=== PATIENT | male | born 1990 | race Caucasian/White ===

== ENCOUNTER 2016-11-16 07:02 | Emergency (ER) | payer OTHER ==
[~2016-11-16] VITALS: Ht 162.6 cm; Wt 68.9 kg
[2016-11-16] MEDS ORDERED: TETANUS,DIPTH,PERTUSS P/F (BOOSTRIX) 0.5 ML VIAL IM STA (07:30)
[2016-11-16] MEDS ORDERED: LIDOCAINE/EPI 1%-1:100,000 (XYLOCAINE) 20ML INJ STA (07:30)
--- NOTE | 2016-11-16 08:11 | ED Upper Extremity ---
General Chief Complaint: Laceration Stated Complaint: LAC LEFT ARM Nursing Triage Note: AMBULATED TO ROOM 07 WITHOUT DIFFICULTY. LACERATION TO LEFT WRIST FROM WORK RELTED ACCIDENT WITH A SAW. PT WORKS AT [employer]. CMS CHECK TO LEFT HAND WNL. Nursing Sepsis Screen: No Definite Risk Source: patient Exam Limitations: no limitations History of Present Illness Time seen by provider: 07:25 Initial Comments Here with report of laceration to the left wrist volar aspect on the ulnar side that is 5 cm long. This occurred at work while he was grinding. 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 Bleeding is controlled. Tetanus is not up-to-date. Denies disturbances of movement or sensation to the left hand. Onset: just prior to arrival Severity: moderate Pain/Injury Location: left wrist Method of Injury: incised Modifying Factors: Improves With Immobilization, Worse With Movement Allergies and Home Medications Allergies Coded Allergies: No Known Drug Allergies (Unverified , 11/16/16) Home Medications No Active Prescriptions or Reported Meds Constitutional: see HPI, No chills, No fever Respiratory: no symptoms reported Cardiovascular: no symptoms reported Musculoskeletal: see HPI, muscle pain, No muscle weakness Skin: see HPI, lesions Psychiatric/Neurological: Denies Numbness, Denies Tingling, Denies Weakness Past Zmelrfj-Hgogxc-Lnbcyw Hx Patient Social History Alcohol Use: Denies Use Recreational Drug Use: No Smoking Status: Current Everyday Smoker Recent Foreign Travel: No Contact w/Someone Who Travel: No Recent Infectious Disease Expo: No Recent Hopitalizations: No Seasonal Allergies Seasonal Allergies: No Surgeries HX Surgeries: No Respiratory Hx Respiratory Disorders: No Cardiovascular Hx Cardiac Disorders: No Neurological Hx Neurological Disorders: No Reproductive System Hx Reproductive Disorders: No Genitourinary Hx Genitourinary Disorders: No Gastrointestinal Hx Gastrointestinal Disorders: No Musculoskeletal Hx Musculoskeletal Disorders: No Endocrine Hx Endocrine Disorders: No HEENT HX ENT Disorders: No Cancer Hx Cancer: No Psychosocial Hx Psychiatric Problems: No Reviewed Nursing Assessment Reviewed/Agree w Nursing PMH: Yes Family Medical History Significant Family History: No Pertinent Family Hx Physical Exam Vital Signs Vital Sign - Last 12Hours 11/16/16 07:05 Temp 98.0 Pulse 92 Resp 16 B/P (MAP) 141/90 Pulse Ox 98 Capillary Refill : Less Than 3 Seconds General Appearance: WD/WN, no apparent distress Cardiovascular: regular rate, rhythm, no murmur Respiratory: lungs clear, normal breath sounds Wrist: Yes normal ROM, Yes pain, Yes soft tissue tenderness (5 centimeter laceration to the inner aspect of the left wrist on the ulnar side that is horizontally oriented with respect to the arm.) Hand: normal ROM, Left 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 Wound evaluated. Tendon sheath noted but intact without laceration. Patient has venous bleeding from distal edge. Vessel oversewn with 2 Vicryl sutures. Closed with 7 simple interrupted 4-0 Prolene lines. Covered with antibiotic ointment and dressing. Tolerated procedure well. No complications. Progress/Results/Core Measures Results/Orders My Orders Orders - SHERWIN DAY MD Dipht,Pertwolfgang(Acell),Tet Adult (Boostrix (11/16/16 07:30) Lidocaine/Epi 1% 1:100,000 (Xylocaine /E (11/16/16 07:30) Ibuprofen Tablet (Motrin Tablet) (11/16/16 08:14) Vital Signs/I&O Vital Sign - Last 12Hours 11/16/16 07:05 Temp 98.0 Pulse 92 Resp 16 B/P (MAP) 141/90 Pulse Ox 98 Blood Pressure Mean: 107 Progress Note : Progress Note Seen and evaluated. Tetanus updated. Wound anesthetized and had resolution of pain. Wound cleaned and closure by me. Antibiotic ointment, Telfa and dressing placed afterwards. Placed in simple Velcro splint. Discharged home with return precautions. Patient verbalize understanding of instructions and agreement with plan. Ibuprofen 800 mg by mouth given prior to discharge. Departure Impression Impression: Primary Impression: Laceration of left wrist Qualified Codes: S61.512A - Laceration without foreign body of left wrist, initial encounter Disposition: 01 HOME, SELF-CARE Condition: Improved Departure-Patient Inst. Decision time for Depature: 08:15 Referrals: NO,LOCAL PHYSICIAN (PCP/Family) Primary Care Physician Patient Instructions: Laceration Repair With Stitches (DC) Add. Discharge Instructions: All discharge instructions reviewed with patient and/or family. Voiced understanding. Stitches out in 10 days. You may use antibiotic ointment and dressing over wound changing it twice daily for the next his or so and then just use dry dressing over wound after that. Clean wounds daily. You may shower but do not soak wound in bathtub, poor for any other body of water. Pat wound dry after cleaning. Use splint that was given for the next several days to prevent sutures from pulling out. Return for worse pain, fever, red streaks up the arm , foul-smelling drainage or other concerns as needed. You may take ibuprofen 800 mg every 8 hours as needed for pain. You may take Tylenol 1000 mg every 8 hours as needed for pain. Scripts No Active Prescriptions or Reported Meds SHERWIN DAY MD Nov 16, 2016 08:11
[2016-11-16] MEDS ORDERED: IBUPROFEN 800 MG (MOTRIN) TAB PO STA (08:14)
[2016-11-16 08:25] VITALS: BP 141/90
== END 2016-11-16 08:25 | disposition home or self-care (01) ==
LOC: EDUNIT# 07:02 → ER 07:05
DX: S61.512A Laceration without foreign body of left wrist, initial encounter (principal); Z23 Encounter for immunization; F17.210 Nicotine dependence, cigarettes, uncomplicated; W31.89XA Contact with other specified machinery, initial encounter; Y92.59 Other trade areas as the place of occurrence of the external cause; Y99.0 Civilian activity done for income or pay
CPT/HCPCS: 12032; 90471; 90715

== ENCOUNTER 2017-03-25 22:33 | Inpatient (IN) | payer OTHER ==
[~2017-03-25] VITALS: Ht 162.6 cm; Wt 76.3 kg
[2017-03-25] MEDS ORDERED: NS IV 1000 ML 1,000 ML IV ONE ×2 (23:05→23:30)
[2017-03-25] MEDS ORDERED: ACETAMINOPHEN 500 MG TAB (TYLENOL) PO STA (23:05)
[2017-03-25 23:10] LABS: BASOPHILS % (AUTO) 0 % (0-10); EOSINOPHILS % (AUTO) 0 % (0-10); LYMPHOCYTES # (AUTO) 0.3 X 10^3 (1.0-4.0); LYMPHOCYTES % (AUTO) 10 % (12-44); MEAN CORPUSCULAR HEMOGLOBIN 30 PG (25-34); MEAN CORPUSCULAR HGB CONC 34 G/DL (32-36); MEAN CORPUSCULAR VOLUME 89 FL (80-99); MEAN PLATELET VOLUME 9.1 FL (7.4-10.4); MONOCYTES % (AUTO) 0 % (0-12); NEUTROPHILS # (AUTO) 2.6 X 10^3 (1.8-7.8); NEUTROPHILS % (AUTO) 89 % (42-75); PLATELET COUNT 166 10^3/uL (130-400); RED BLOOD COUNT 4.49 10^6/uL (4.35-5.85)
[2017-03-25 23:19] LABS: KETONES,URINE 1+ (NEGATIVE); LEUKOCYTE ESTERASE ,URINE 1+ (NEGATIVE); NITRITE,URINE NEGATIVE (NEGATIVE); PH,URINE 6 (5-9); PROTEIN,URINE 3+ (NEGATIVE); UROBILINOGEN,URINE 8 MG/DL (NORMAL)
[2017-03-25 23:23] LABS: ALANINE AMINOTRANSFERASE 63 U/L (0-55); ALBUMIN 3.5 GM/DL (3.2-4.5); ANION GAP 13 MMOL/L (5-14); ASPARTATE AMINO TRANSFERASE 60 U/L (5-34); BILIRUBIN,TOTAL 1.4 MG/DL (0.1-1.0); BLOOD UREA NITROGEN 13 MG/DL (7-18); BUN/CREATININE RATIO 11; CALCIUM 9.3 MG/DL (8.5-10.1); CARBON DIOXIDE 19 MMOL/L (21-32); CHLORIDE 103 MMOL/L (98-107); CREATININE SERUM 1.14 MG/DL (0.60-1.30); GFR ESTIMATED > 60; GLUCOSE 104 MG/DL (70-105); POTASSIUM 3.7 MMOL/L (3.6-5.0); SODIUM 135 MMOL/L (135-145); TOTAL PROTEIN 6.7 GM/DL (6.4-8.2)
[2017-03-25 23:24] LABS: BILIRUBIN,URINE 1+ (NEGATIVE)
[2017-03-25] MEDS ORDERED: ONDANSETRON 4 MG/2 ML (SDV) Z0FRAN IVP ONE (23:45)
[2017-03-25 23:56] LABS: hs C REACTIVE PROTEIN 17.91 MG/DL (0.00-0.50)
[2017-03-26] MEDS ORDERED: DOXYCYCLINE INJECTION 100 MG in NS (IVPB) 100 ML IV ONE (00:15)
[2017-03-26] MEDS ORDERED: cefTRIAXone INJECTION 1,000 MG in NS (IVPB) 50 ML IV ONE (00:15)
[2017-03-26] MEDS ORDERED: KETOROLAC 30 MG/ML VIAL IVP ONE (00:30)
--- NOTE | 2017-03-26 01:20 | ED General ---
General Chief Complaint: Fever-Adult/Adol Stated Complaint: COUGH N/V/D Nursing Triage Note: to ER with complaints of fever and chills x 5 days. Patient reports intermittent use of ibuprofen, with some relief. Patient's mother reports "well, he was working and you know, running through a field and got some cuts on his ball sack and arms, and i think they was infected, but they better now, but maybe it got to his bloodstream." Nursing Sepsis Screen: Possible Sepsis Risk Source of Information: Patient, Family Exam Limitations: No Limitations History of Present Illness Time Seen by Provider: 23:05 Initial Comments This 26-year-old young man presents to the emergency room with numerous symptoms of acute illness. Symptoms started about 5 days ago and include fever , chills, vomiting, headache with light sensitivity, dry cough, neck stiffness that is now resolved, diarrhea, chest discomfort, and myalgias/arthralgias. He was injured while running through a field about 2 weeks ago. He stepped on raad wire and ran through brush resulting in numerous minor abrasions and lacerations on his extremities and the scrotum. He reports to skin infections/ abscess is occurred, one on the left elbow and one on the scrotum. The one on the left elbow drained pus which he expressed manually. These wounds now appear to have healed. He is up-to-date on his tetanus immunization. His family is concerned he may have developed sepsis from the skin infections. Patient reports diffuse myalgias and arthralgias, especially of the left knee and right thumb. He is uncertain if he had any tick bites recently but would not doubt it based on the location of the incident described above. He is notably febrile and tachycardic on assessment. Allergies and Home Medications Allergies Coded Allergies: No Known Drug Allergies (Unverified , 11/16/16) Home Medications No Active Prescriptions or Reported Meds Constitutional: see HPI EENTM: see HPI Respiratory: see HPI Cardiovascular: see HPI Gastrointestinal: see HPI Genitourinary: no symptoms reported Musculoskeletal: see HPI Skin: see HPI Psychiatric/Neurological: See HPI Hematologic/Lymphatic: No Symptoms Reported Immunological/Allergic: no symptoms reported Past Pvhpiyy-Vlsmwz-Eubzzh Hx Patient Social History Alcohol Use: Occasionally Uses Recreational Drug Use: Yes Drug of Choice: Marijuana Smoking Status: Never a Smoker 2nd Hand Smoke Exposure: Yes Recent Foreign Travel: No Contact w/Someone Who Travel: No Recent Infectious Disease Expo: No Recent Hopitalizations: No Immunizations Up To Date Tetanus Booster (TDap): Less than 5yrs Seasonal Allergies Seasonal Allergies: No Surgeries HX Surgeries: No Respiratory Hx Respiratory Disorders: No Cardiovascular Hx Cardiac Disorders: Yes (history of pre-atrial contractions) Neurological Hx Neurological Disorders: No Reproductive System Hx Reproductive Disorders: No Genitourinary Hx Genitourinary Disorders: No Gastrointestinal Hx Gastrointestinal Disorders: No Musculoskeletal Hx Musculoskeletal Disorders: No Endocrine Hx Endocrine Disorders: No HEENT HX ENT Disorders: No Cancer Hx Cancer: No Psychosocial Hx Psychiatric Problems: No Integumentary HX Skin/Integumentary Disorder: Yes Skin/Integumentary Disorders: Recent Skin Changes (recent skin infections) Family Medical History Significant Family History: No Pertinent Family Hx, Diabetes, Other Conditions/ Hx (factor V Leiden) Physical Exam-Suspected Sepsis Physical Exam Vital Signs Vital Sign - Last 12Hours 03/25/17 22:44 Temp 101.3 Pulse 116 Resp 20 B/P (MAP) 139/105 Pulse Ox 95 O2 Delivery Room Air Capillary Refill : Less Than 3 Seconds Blood Pressure Mean: 116 General Appearance: WD/WN, Mild Distress HEENT: PERRL/EOMI, TMs Normal, Normal ENT Inspection, Pharynx Normal Neck: Full Range of Motion, Normal Inspection, Non Tender, Supple, Other (no nuchal rigidity) Respiratory: Lungs Clear, Normal Breath Sounds, No Accessory Muscle Use, No Respiratory Distress, Other (mild dry cough noted) Cardiovascular: No Edema, No Murmur, Tachycardia Gastrointestinal: Normal Bowel Sounds, Soft, Tenderness (epigastric tenderness) Back: Normal Inspection Extremity: Non Tender, No Pedal Edema, Other (healing wounds on the extremities with no evidence of active infection) Neurologic/Psychiatric: Alert, Oriented x3, No Motor/Sensory Deficits, Normal Mood/Affect, database analyst II-XII Norm as Tested Skin: normal color, warm/dry, No rash Focused Exam Evaluation Sepsis Stage: Sepsis Possible Source: Unknown Time of Focused Exam: 02:05 Respiratory: Lungs Clear, Normal Breath Sounds, No Accessory Muscle Use, No Respiratory Distress Cardiovascular: Regular Rate, Rhythm, No Edema, No Murmur Capillary Refill: Less Than 3 Seconds Skin: normal color, warm/dry Lactic Acid Level Laceration Repair : Suture Size: 4-0 Progress/Results/Core Measures Suspected Sepsis Recent Fever Within 48 Hours: Yes Infection Criteria Present: Suspected New Infection New/Unexplained Altered Menta: No Sepsis Screen: Possible Sepsis Risk Sepsis Diagnosis: SIRS Temperature:101.3 Pulse: 116 Respiratory Rate: 20 Laboratory Tests 03/25/17 22:55: White Blood Count 3.0L 03/26/17 04:10: White Blood Count 13.8H Blood Pressure 139 /105 Mean: 116 Laboratory Tests 03/25/17 22:55: Creatinine 1.14, Platelet Count 166, Total Bilirubin 1.4H 03/26/17 04:10: Platelet Count 182 Results/Orders Lab Results Laboratory Tests Test 03/25/17 22:45 03/25/17 22:55 03/25/17 23:35 03/26/17 04:10 Range/Units Urine Color WILNER H Urine Clarity CLEAR Urine pH 6 5-9 Urine Specific [place] 1.020 1.016-1.022 Urine Protein 3+ H NEGATIVE Urine Glucose (UA) NEGATIVE NEGATIVE Urine Ketones 1+ H NEGATIVE Urine Nitrite NEGATIVE NEGATIVE Urine Bilirubin 1+ H NEGATIVE Urine Urobilinogen 8 H NORMAL MG/DL Urine Leukocyte Esterase 1+ H NEGATIVE Urine RBC (Auto) 3+ H NEGATIVE Urine RBC 0-2 /HPF Urine WBC 2-5 /HPF Urine Crystals NONE /LPF Urine Bacteria NEGATIVE /HPF Urine Casts NONE /LPF Urine Mucus LARGE H /LPF Urine Culture Indicated NO White Blood Count 3.0 L 13.8 H 4.3-11.0 10^3/uL Red Blood Count 4.49 4.15 L 4.35-5.85 10^6/uL Hemoglobin 13.5 12.4 L 13.3-17.7 G/DL Hematocrit 40 37 L 40-54 % Mean Corpuscular Volume 89 90 80-99 FL Mean Corpuscular Hemoglobin 30 30 25-34 PG Mean Corpuscular Hemoglobin Concent 34 33 32-36 G/DL Red Cell Distribution Width 13.0 13.3 10.0-14.5 % Platelet Count 166 182 130-400 10^3/uL Mean Platelet Volume 9.1 9.5 7.4-10.4 FL Neutrophils (%) (Auto) 89 H 91 H 42-75 % Lymphocytes (%) (Auto) 10 L 3 L 12-44 % Monocytes (%) (Auto) 0 6 0-12 % Eosinophils (%) (Auto) 0 0 0-10 % Basophils (%) (Auto) 0 0 0-10 % Neutrophils # (Auto) 2.6 12.5 H 1.8-7.8 X 10^3 Lymphocytes # (Auto) 0.3 L 0.5 L 1.0-4.0 X 10^3 Monocytes # (Auto) 0.0 0.8 0.0-1.0 X 10^3 Eosinophils # (Auto) 0.0 0.0 0.0-0.3 10^3/uL Basophils # (Auto) 0.0 0.0 0.0-0.1 10^3/uL Sodium Level 135 135-145 MMOL/L Potassium Level 3.7 3.6-5.0 MMOL/L Chloride Level 103 98-107 MMOL/L Carbon Dioxide Level 19 L 21-32 MMOL/L Anion Gap 13 5-14 MMOL/L Blood Urea Nitrogen 13 7-18 MG/DL Creatinine 1.14 0.60-1.30 MG/DL Estimat Glomerular Filtration Rate > 60 BUN/Creatinine Ratio 11 Glucose Level 104 70-105 MG/DL Lactic Acid Level 1.38 0.50-2.00 MMOL/L Calcium Level 9.3 8.5-10.1 MG/DL Total Bilirubin 1.4 H 0.1-1.0 MG/DL Aspartate Amino Transf (AST/SGOT) 60 H 5-34 U/L Alanine Aminotransferase (ALT/SGPT) 63 H 0-55 U/L Alkaline Phosphatase 47 40-136 U/L Total Creatine Kinase 71 30-200 U/L C-Reactive Protein High Sensitivity 17.91 H 0.00-0.50 MG/DL Total Protein 6.7 6.4-8.2 GM/DL Albumin 3.5 3.2-4.5 GM/DL Micro Results Microbiology 03/26/17 Influenza Types A,B Antigen ([facility]I) - Final, Complete My Orders Orders - JERI GUIDRY MD Cbc With Automated Diff (03/25/17 23:03) Comprehensive Metabolic Panel (03/25/17 23:03) Lactic Acid Analyzer (03/25/17 23:03) Blood Culture (03/25/17 23:03) Saline Lock/Iv-Start (03/25/17 23:03) Ua Culture If Indicated (03/25/17 23:15) Tick Panel Without Lyme (03/25/17 23:30) Ns Iv 1000 Ml (Sodium Chloride 0.9%) (03/25/17 23:30) Hs C Reactive Protein (03/25/17 23:30) Chest Pa/Lat (2 View) (03/25/17 23:32) Ondansetron Injection (Zofran Injectio (03/25/17 23:45) Creatine Kinase (03/25/17 23:32) Ceftriaxone Injection (Rocephin Injectio (03/26/17 00:15) Doxycycline Injection (Vibramycin Inject (03/26/17 00:15) Influenza A And B Antigens (03/26/17 00:14) Ct Abdomen/Pelvis W (03/26/17 00:21) Ketorolac Injection (Toradol Injection) (03/26/17 00:30) West Nile Virus Igg & M (03/26/17 00:24) Iohexol Injection (Omnipaque 350 Mg/Ml 1 (03/26/17 01:45) Medications Given in ED Current Medications Medications Dose Ordered Sig/Chava Route Start Time Stop Time Status Last Admin Dose Admin Ceftriaxone Sodium 1000 mg/ Sodium Chloride 50 ml @ 100 mls/hr ONCE ONCE IV 03/26/17 00:15 03/26/17 00:44 DC 03/26/17 01:08 100 MLS/HR Doxycycline Hyclate 100 mg/ Sodium Chloride 100 ml @ 100 mls/hr ONCE ONCE IV 03/26/17 00:15 03/26/17 01:14 DC 03/26/17 01:04 100 MLS/HR Ketorolac Tromethamine 30 mg ONCE ONCE IVP 03/26/17 00:30 03/26/17 00:31 DC 03/26/17 01:04 30 MG Ondansetron HCl 8 mg ONCE ONCE IVP 03/25/17 23:45 03/25/17 23:46 DC 03/25/17 23:39 8 MG Sodium Chloride 1,000 ml @ 0 mls/hr Q0M ONCE IV 03/25/17 23:05 03/25/17 23:06 DC 03/25/17 23:10 0 MLS/HR Sodium Chloride 1,000 ml @ 0 mls/hr Q0M ONCE IV 03/25/17 23:30 03/25/17 23:32 DC 03/25/17 23:38 0 MLS/HR Vital Signs/I&O Vital Sign - Last 12Hours 03/25/17 03/25/17 03/26/17 03/26/17 22:44 23:10 02:24 02:30 Temp 101.3 101.3 99.5 Pulse 116 101 Resp 20 18 B/P (MAP) 139/105 Pulse Ox 95 96 97 O2 Delivery Room Air Room Air Intake and Output 03/26/17 00:00 Intake Total 1000 ml Balance 1000 ml Capillary Refill : Less Than 3 Seconds Blood Pressure Mean: 116 Progress Note #1: Time: 00:21 Progress Note Septic workup was pursued after initial assessment as patient met SIRS criteria. No definite source of sepsis has been identified. However, there are potential sources including recent skin wounds. Patient also was in a field at the same time he received the skin wounds and tickborne illness is within consideration. Patient does have some symptoms of ehrlichiosis including the diarrhea, headache, and blood count dyscrasias. Progress Note #2: Time: 00:22 Progress Note Source of infection has not yet been identified. Tickborne disease is a consideration and doxycycline was ordered. Rocephin has also been ordered empirically. Patient does have epigastric tenderness on exam which is presumed to be related to vomiting. CT of the abdomen and pelvis has been ordered to further evaluate for source of infection. Progress Note #3: Time: 02:[address] demonstrated no acute findings requiring immediate intervention. There is suggestion of gastroenteritis, enterocolitis. Patient feels much better after hydration and treatment with medications including Toradol. Doxycycline and Rocephin were administered in the ER. Diagnostic Imaging Diagonstic Imaging: Xray Plain Films/CT/US/NM/MRI: chest Comments Chest x-ray viewed by me. Report not yet available. No acute abnormalities appreciated. Diagonstic Imaging: CT Plain Films/CT/US/NM/MRI: abdomen, pelvis Comments CT abdomen and pelvis viewed by me. [facility] report reviewed. "There is segmental wall thickening of the colon with air-fluid levels. Also, intermittent air-fluid levels in the nondilated small bowel loops. Findings may represent sequela of enterocolitis/gastroenteritis. Correlate with findings and history. There is trace amount of free fluid. No free air or fluid collections. The appendix is normal in caliber but fluid-filled, coronary secondary to fluid in:. No appendicolith or adjacent inflammatory type changes. Correlate with clinical findings. Consider short-term imaging and clinical follow-up. The liver, spleen, pancreas, gallbladder, adrenal glands, and kidneys are unremarkable. Urinary bladder, prostate and seminal vesicles are unremarkable." Departure Communication Time/Spoke to Admitting Phy: 00:[address] Dhillon Impression Impression: Primary Impression: Sepsis Qualified Codes: A41.9 - Sepsis, unspecified organism Additional Impressions: Nausea vomiting and diarrhea Headache Qualified Codes: R51 - Headache Myalgia Leukopenia Qualified Codes: D72.819 - Decreased white blood cell count, unspecified Epigastric pain Disposition: ADMITTED INPATIENT Condition: Improved Decision to Admit Reason: Admit from ER (General) Decision to Admit/Date: Mar 26, 2017 Time/Decision to Admit Time: 00:21 Departure-Patient Inst. Referrals: NO,LOCAL PHYSICIAN (PCP/Family) Primary Care Physician Scripts No Active Prescriptions or Reported Meds JERI GUIDRY MD Mar 26, 2017 01:20
[2017-03-26] MEDS ORDERED: IOHEXOL 350 MG/ML 100 ML (OMNIPAQUE 350) VIAL IV ONE (01:45)
[2017-03-26] MEDS ORDERED: NS IV 1000 ML 1,000 ML ONE (02:54)
[2017-03-26] MEDS: NS IV 1000 ML 1,000 ML IV SCH ×4 (03:12→23:02)
[2017-03-26] MEDS ORDERED: VANCOMYCIN 1 GM/NS 250 ML IVPB IV ONE ×2 (03:15)
[2017-03-26] MEDS ORDERED: CATHETER FLUSH 10 ML SYR IV PRN (03:15)
[2017-03-26 04:00] VITALS: BP 110/57
[2017-03-26] MEDS: ONDANSETRON 4 MG/2 ML (SDV) Z0FRAN IV PRN ×3 (04:23→22:20)
[2017-03-26 04:52] LABS: BASOPHILS % (AUTO) 0 % (0-10); EOSINOPHILS % (AUTO) 0 % (0-10); LYMPHOCYTES # (AUTO) 0.5 X 10^3 (1.0-4.0); LYMPHOCYTES % (AUTO) 3 % (12-44); MEAN CORPUSCULAR HEMOGLOBIN 30 PG (25-34); MEAN CORPUSCULAR HGB CONC 33 G/DL (32-36); MEAN CORPUSCULAR VOLUME 90 FL (80-99); MEAN PLATELET VOLUME 9.5 FL (7.4-10.4); MONOCYTES # (AUTO) 0.8 X 10^3 (0.0-1.0); MONOCYTES % (AUTO) 6 % (0-12); NEUTROPHILS # (AUTO) 12.5 X 10^3 (1.8-7.8); NEUTROPHILS % (AUTO) 91 % (42-75); PLATELET COUNT 182 10^3/uL (130-400); RED BLOOD COUNT 4.15 10^6/uL (4.35-5.85); RED CELL DISTRIBUTION WIDTH 13.3 % (10.0-14.5); WHITE BLOOD COUNT 13.8 10^3/uL (4.3-11.0)
[2017-03-26 05:14] LABS: BAND NEUTROPHILS 13 %; BASOPHILS % (MANUAL) 0 %; EOSINOPHILS % (MANUAL) 0 %; LYMPHOCYTES % (MANUAL) 2 %; NEUTROPHILS % (MANUAL) 80 %
[2017-03-26] MEDS: DOXYCYCLINE 100 MG/NS 100 ML IVPB IV SCH ×4 (05:14→17:13)
[2017-03-26] MEDS: CATHETER FLUSH 10 ML SYR IV SCH ×3 (05:16→20:49)
[2017-03-26] MEDS: ACETAMINOPHEN 325 MG TABLET/CAPLET (TYLENOL) PO PRN ×3 (05:19→20:47)
[2017-03-26 05:27] LABS: ALANINE AMINOTRANSFERASE 65 U/L (0-55); ALBUMIN 3.1 GM/DL (3.2-4.5); ANION GAP 10 MMOL/L (5-14); ASPARTATE AMINO TRANSFERASE 59 U/L (5-34); BILIRUBIN,TOTAL 1.4 MG/DL (0.1-1.0); BLOOD UREA NITROGEN 12 MG/DL (7-18); BUN/CREATININE RATIO 11; CALCIUM 8.3 MG/DL (8.5-10.1); CARBON DIOXIDE 22 MMOL/L (21-32); CHLORIDE 107 MMOL/L (98-107); CREATININE SERUM 1.12 MG/DL (0.60-1.30); GFR ESTIMATED > 60; GLUCOSE 118 MG/DL (70-105); POTASSIUM 4.2 MMOL/L (3.6-5.0); SODIUM 139 MMOL/L (135-145); TOTAL PROTEIN 5.7 GM/DL (6.4-8.2); hs C REACTIVE PROTEIN 14.94 MG/DL (0.00-0.50)
--- NOTE | 2017-03-26 07:54 | Diagnostic Imaging Report ---
PROCEDURE: CT abdomen and pelvis with contrast. TECHNIQUE: Multiple contiguous axial images were obtained through the abdomen and pelvis after administration of intravenous contrast. INDICATION: Fever, cough, congestion. FINDINGS: There is a trace amount of pelvic free fluid without loculated fluid collection. There is fluid throughout the lumen of the colon with some scattered nondifferential air-fluid levels in the large bowel. There is mild wall thickening of the colon. No substantial pericolonic or perienteric edema. There is some fluid within nondilated small bowel. Pattern raises the question of nonspecific enterocolitis. The appendix is nondilated. No periappendiceal edema or appendicolith. There is no hydronephrosis. Liver, spleen, adrenals, and pancreas unremarkable. There is no pneumatosis or free air. Prostate, seminal vesicles, and urinary bladder appeared unremarkable. There is a minute amount of right-sided pleural fluid at the posterior sulcus. No stone within the gallbladder evident. There is no biliary dilatation. IMPRESSION: 1. Unobstructed nonfocal urinary tracts. Nondilated appendix with no periappendiceal edema. 2. Small and large bowel luminal fluid with some borderline large bowel wall thickening. Pattern raises the question of enterocolitis. Trace free fluid without loculated collection or risa abscess. No free air. Minute right pleural effusion. Dictated by: Dictated on workstation # [id number]
[2017-03-26] MEDS: FAMOTIDINE 20 MG (PEPCID) TABLET PO SCH ×2 (08:12→20:48)
[2017-03-26] MEDS: KETOROLAC 30 MG/ML VIAL IV PRN ×2 (08:12→22:25)
--- NOTE | 2017-03-26 08:16 | Diagnostic Imaging Report ---
INDICATION: Cough and fever. COMPARISON: CT abdomen and pelvis performed subsequently. FINDINGS: There are ill-defined airspace opacities in the lung bases which are better seen on CT abdomen/ pelvis as centrilobular groundglass opacities. No pleural effusion or pneumothorax. Normal heart size. Normal pulmonary vasculature. IMPRESSION: Bibasilar ill-defined airspace opacities favor an infectious bronchiolitis. Dictated by: Dictated on workstation # [id number]
[2017-03-26] MEDS ORDERED: IBUP-30 PO (08:19)
[2017-03-26 08:27] VITALS: BP 120/76
[2017-03-26] MEDS ORDERED: POLYETHYLENE GLYCOL 17 GM (MIRALAX) PACK PO NR (10:15)
--- NOTE | 2017-03-26 10:31 | History & Physicial ([facility]) ---
HPI History of Present Illness: 26yo male that presented to ER with complaints of high fever. Patient has diffuse symptoms of myalgias and joint pain in edil past few days. Also complaining of headache and slight constipation. Has still passed stool. No trouble urinating. No BRBPR or melanotic stools. Denies sore throat, runny nose, upper resp symptoms. No cough or sputum production. No diarrhea. Patient states that he was running through a field with barbed wire about 1-2 weeks ago and got his legs all cut up and had lots of abrasions. All of those have healed. He has not had a tetanus shot since he was 13 or 14. He does have multiple tattoos. Source: patient, family Exam Limitations: no limitations Date seen by provider: Mar 26, 2017 Time Seen by Provider: 09:01 Attending Physician Corazon Dhillon MD PCP No,Local Physician Consult Date of Admission Mar 26, 2017 at 1:15 am Home Medications Home Medications Reviewed patient Home Medication Reconciliation Form Allergies Coded Allergies: No Known Drug Allergies (Unverified , 11/16/16) [id number] Hx Patient Social History Marrital Status: single Alcohol Use: Occasionally Uses Recreational Drug Use: Yes Drug of Choice: Marijuana, METH Smoking Status: Current Everyday Smoker Type Used: Cigarettes 2nd Hand Smoke Exposure: Yes Recent Foreign Travel: No Contact w/other who traveled: No Recent Hopitalizations: No Recent Infectious Disease Expo: No Physical Abuse Screen: No Sexual Abuse: No Immunizations Up To Date Tetanus Booster (TDap): More than 5yrs Family Medical History Significant Family History: No Pertinent Family Hx, Diabetes, Other Conditions/ Hx (factor V Leiden) Review of Systems (CHC) Constitutional: no symptoms reported All Other Systems Reviewed Negative Unless Noted: Yes (Negative excepted noted.) Reviewed Test Results Reviewed Test Results Lab Laboratory Tests Test 03/25/17 22:45 03/25/17 22:55 03/25/17 23:35 03/26/17 04:10 Range/Units Urine Color WILNER H Urine Clarity CLEAR Urine pH 6 5-[address] 1.020 1.016-1.022 Urine Protein 3+ H NEGATIVE Urine Glucose (UA) NEGATIVE NEGATIVE Urine Ketones 1+ H NEGATIVE Urine Nitrite NEGATIVE NEGATIVE Urine Bilirubin 1+ H NEGATIVE Urine Urobilinogen 8 H NORMAL MG/DL Urine Leukocyte Esterase 1+ H NEGATIVE Urine RBC (Auto) 3+ H NEGATIVE Urine RBC 0-2 /HPF Urine WBC 2-5 /HPF Urine Crystals NONE /LPF Urine Bacteria NEGATIVE /HPF Urine Casts NONE /LPF Urine Mucus LARGE H /LPF Urine Culture Indicated NO White Blood Count 3.0 L 13.8 H 4.3-11.0 10^3/uL Red Blood Count 4.49 4.15 L 4.35-5.85 10^6/uL Hemoglobin 13.5 12.4 L 13.3-17.7 G/DL Hematocrit 40 37 L 40-54 % Mean Corpuscular Volume 89 90 80-99 FL Mean Corpuscular Hemoglobin 30 30 25-34 PG Mean Corpuscular Hemoglobin Concent 34 33 32-36 G/DL Red Cell Distribution Width 13.0 13.3 10.0-14.5 % Platelet Count 166 182 130-400 10^3/uL Mean Platelet Volume 9.1 9.5 7.4-10.4 FL Neutrophils (%) (Auto) 89 H 91 H 42-75 % Lymphocytes (%) (Auto) 10 L 3 L 12-44 % Monocytes (%) (Auto) 0 6 0-12 % Eosinophils (%) (Auto) 0 0 0-10 % Basophils (%) (Auto) 0 0 0-10 % Neutrophils # (Auto) 2.6 12.5 H 1.8-7.8 X 10^3 Lymphocytes # (Auto) 0.3 L 0.5 L 1.0-4.0 X 10^3 Monocytes # (Auto) 0.0 0.8 0.0-1.0 X 10^3 Eosinophils # (Auto) 0.0 0.0 0.0-0.3 10^3/uL Basophils # (Auto) 0.0 0.0 0.0-0.1 10^3/uL Sodium Level 135 139 135-145 MMOL/L Potassium Level 3.7 4.2 3.6-5.0 MMOL/L Chloride Level 103 107 98-107 MMOL/L Carbon Dioxide Level 19 L 22 21-32 MMOL/L Anion Gap 13 10 5-14 MMOL/L Blood Urea Nitrogen 13 12 7-18 MG/DL Creatinine 1.14 1.12 0.60-1.30 MG/DL Estimat Glomerular Filtration Rate > 60 > 60 BUN/Creatinine Ratio 11 11 Glucose Level 104 118 H 70-105 MG/DL Lactic Acid Level 1.38 0.50-2.00 MMOL/L Calcium Level 9.3 8.3 L 8.5-10.1 MG/DL Total Bilirubin 1.4 H 1.4 H 0.1-1.0 MG/DL Aspartate Amino Transf (AST/SGOT) 60 H 59 H 5-34 U/L Alanine Aminotransferase (ALT/SGPT) 63 H 65 H 0-55 U/L Alkaline Phosphatase 47 46 40-136 U/L Total Creatine Kinase 71 30-200 U/L C-Reactive Protein High Sensitivity 17.91 H 14.94 H 0.00-0.50 MG/DL Total Protein 6.7 5.7 L 6.4-8.2 GM/DL Albumin 3.5 3.1 L 3.2-4.5 GM/DL Neutrophils % (Manual) 80 % Lymphocytes % (Manual) 2 % Monocytes % (Manual) 5 % Eosinophils % (Manual) 0 % Basophils % (Manual) 0 % Band Neutrophils 13 % Toxic Granulation 1+ Test 03/26/17 10:30 Range/Units Radiology Date of Exam: 03/26/17 CT ABDOMEN/PELVIS W PROCEDURE: CT abdomen and pelvis with contrast. TECHNIQUE: Multiple contiguous axial images were obtained through the abdomen and pelvis after administration of intravenous contrast. INDICATION: Fever, cough, congestion. FINDINGS: There is a trace amount of pelvic free fluid without loculated fluid collection. There is fluid throughout the lumen of the colon with some scattered nondifferential air-fluid levels in the large bowel. There is mild wall thickening of the colon. No substantial pericolonic or perienteric edema. There is some fluid within nondilated small bowel. Pattern raises the question of nonspecific enterocolitis. The appendix is nondilated. No periappendiceal edema or appendicolith. There is no hydronephrosis. Liver, spleen, adrenals, and pancreas unremarkable. There is no pneumatosis or free air. Prostate, seminal vesicles, and urinary bladder appeared unremarkable. There is a minute amount of right-sided pleural fluid at the posterior sulcus. No stone within the gallbladder evident. There is no biliary dilatation. IMPRESSION: 1. Unobstructed nonfocal urinary tracts. Nondilated appendix with no periappendiceal edema. 2. Small and large bowel luminal fluid with some borderline large bowel wall thickening. Pattern raises the question of enterocolitis. Trace free fluid without loculated collection or risa abscess. No free air. Minute right pleural effusion. Physical Exam-([facility]) Physical Exam Vital Signs VS - Last 72 Hours, by Label 03/25/17 03/25/17 03/26/17 03/26/17 22:44 23:10 02:24 02:30 Temp 101.3 101.3 99.5 Pulse 116 101 Resp 20 18 B/P (MAP) 139/105 Pulse Ox 95 96 97 O2 Delivery Room Air Room Air 03/26/17 03/26/17 04:00 08:27 Temp 99.3 98.2 Pulse 98 90 Resp 20 20 B/P (MAP) 110/57 120/76 Pulse Ox 95 96 O2 Delivery Room Air Room Air Capillary Refill : Less Than 3 Seconds General Appearance: WD/WN, no apparent distress Eyes: Bilateral Eye EOMI, Bilateral Eye Normal Inspection, Bilateral Eye PERRL HEENT: PERRL/EOMI, normal ENT inspection, pharynx normal Neck: non-tender, full range of motion, supple, normal inspection Respiratory: chest non-tender, lungs clear, normal breath sounds, no respiratory distress, no accessory muscle use Cardiovascular: regular rate, rhythm, no edema, no gallop, no JVD, no murmur Gastrointestinal: normal bowel sounds, non tender, soft, no organomegaly, no pulsatile mass Back: normal inspection, no CVA tenderness, no vertebral tenderness Extremities: normal range of motion, non-tender, normal inspection, no pedal edema, no calf tenderness, normal capillary refill Neurologic/Psychiatric: group cio II-XII nml as tested, no motor/sensory deficits, alert, normal mood/affect, oriented x 3 Skin: normal color, warm/dry Lymphatic: no adenopathy Assessment/Plan Assessment/Plan Admission Dx SEE BELOW Plan FEVER, UNKNOWN ETIOLOGY ADM - no obvious source as yet. have sent work up for tickborne disease in light of his recent scratches while running through a field. will also check IgG/M for EBV,CMV, WNV. HIV and Acute hepatitis panel also pending. pt does not have sx of meningitis. No nuchal ridgidity or intense headaches. will keep fluids going as well CONSTIPATION ADM - Pt states he is having to push to pass a BM. WIll start Miralax today. Declines suppository. DVT PROPH: ambulate TID. Diagnosis/Problems: Clinical Quality Measures DVT/VTE Risk/Contraindication: Risk Factor Score Per Nursin RFS Level Per Nursing on Admit: 1=Low/No VTE PPX Copy Copies To 1: SAMANTHA MOELLER MD, JULIE A MD Mar 26, 2017 10:31 am
[2017-03-26] MEDS: VANCOMYCIN 1 GM/NS 250 ML IVPB IV SCH ×4 (11:20→18:19)
[2017-03-26 12:15] VITALS: BP 125/85
[2017-03-26 16:00] VITALS: BP 130/82
[2017-03-26 20:00] VITALS: BP 130/89
[2017-03-27] VITALS: BP 138/93
[2017-03-27] MEDS: VANCOMYCIN 1 GM/NS 250 ML IVPB IV SCH ×4 (02:44→10:22)
[2017-03-27 04:00] VITALS: BP 139/85
[2017-03-27] MEDS: CATHETER FLUSH 10 ML SYR IV SCH (05:02)
[2017-03-27] MEDS: DOXYCYCLINE 100 MG/NS 100 ML IVPB IV SCH ×2 (05:02)
[2017-03-27] MEDS: NS IV 1000 ML 1,000 ML IV SCH ×2 (06:03→07:41)
[2017-03-27 06:21] LABS: BASOPHILS # (AUTO) 0.1 10^3/uL (0.0-0.1); BASOPHILS % (AUTO) 1 % (0-10); EOSINOPHILS # (AUTO) 0.2 10^3/uL (0.0-0.3); EOSINOPHILS % (AUTO) 2 % (0-10); LYMPHOCYTES # (AUTO) 2.1 X 10^3 (1.0-4.0); LYMPHOCYTES % (AUTO) 23 % (12-44); MEAN CORPUSCULAR HEMOGLOBIN 30 PG (25-34); MEAN CORPUSCULAR HGB CONC 33 G/DL (32-36); MEAN CORPUSCULAR VOLUME 90 FL (80-99); MEAN PLATELET VOLUME 9.5 FL (7.4-10.4); MONOCYTES # (AUTO) 1.8 X 10^3 (0.0-1.0); MONOCYTES % (AUTO) 19 % (0-12); NEUTROPHILS # (AUTO) 5.2 X 10^3 (1.8-7.8); NEUTROPHILS % (AUTO) 56 % (42-75); PLATELET COUNT 205 10^3/uL (130-400); RED BLOOD COUNT 4.51 10^6/uL (4.35-5.85); RED CELL DISTRIBUTION WIDTH 13.8 % (10.0-14.5); WHITE BLOOD COUNT 9.4 10^3/uL (4.3-11.0)
[2017-03-27 06:50] LABS: ANION GAP 12 MMOL/L (5-14); BLOOD UREA NITROGEN 12 MG/DL (7-18); BUN/CREATININE RATIO 11; CALCIUM 9.7 MG/DL (8.5-10.1); CARBON DIOXIDE 22 MMOL/L (21-32); CHLORIDE 109 MMOL/L (98-107); CREATININE SERUM 1.07 MG/DL (0.60-1.30); GFR ESTIMATED > 60; GLUCOSE 79 MG/DL (70-105); POTASSIUM 3.8 MMOL/L (3.6-5.0); SODIUM 143 MMOL/L (135-145)
[2017-03-27 07:20] LABS: HIV AG AB SCREEN Non-Reactive (Non-Reactive)
[2017-03-27 07:31] LABS: TULAREMIA ANTIBODY <1:20
[2017-03-27 08:00] VITALS: BP 120/76
[2017-03-27] MEDS ORDERED: TROUGH ORDER-PHARMACY XX ONE (10:00)
[2017-03-27] MEDS: FAMOTIDINE 20 MG (PEPCID) TABLET PO SCH (10:17)
[2017-03-27] MEDS ORDERED: DOXY100C42 PO (11:24)
--- NOTE | 2017-03-27 11:40 | Discharge Instructions ---
Discharge [facility] Discharge Medications New, Converted or Re-Newed RX: Transmitted to Pharmacy New Medications: Doxycycline Monohydrate (Doxycycline Monohydrate) 100 Mg Capsule 100 MG PO BID, #14 CAP 0 Refills Continued Medications: Ibuprofen (Advil) 200 Mg Tablet 600 MG PO Q6H PRN for PAIN-MILD, TAB Patient Instructions Goal/Follow Up Appt: WE HAVE SCHEDULED A HOSPITAL FOLLOW UP ON APR 02 AT 1:20. ONCE YOU SEE HIM, YOU CAN ESTABLISH CARE WITH DR MOELLER WHO WAS YOUR HOSPITAL FOLLOW UP. Patient Instructions: PLEASE TAKE YOUR MEDICATION PRESCRIBED. CALL THE CLINIC IF YOU CANNOT AFFORD IT. Return to The Hospital For: FEVER, RASH Activity & Diet Discharge Diet: No Restrictions Activity as Tolerated: Yes Copy Copies To 1: DEBBIE ORDOÑEZ MD, JULIE A MD Mar 27, 2017 11:40 am
--- NOTE | 2017-03-27 11:42 | Discharge Summary ---
Diagnosis/Chief Complaint Date of Admission Mar 26, 2017 at 1:15 am Date of Discharge MARCH 27, 2017 Admission Diagnosis Admission Diagnosis SEE BELOW Discharge Diagnosis FEVER, UNKNOWN ETIOLOGY ADM - no obvious source as yet. have sent work up for tickborne disease in light of his recent scratches while running through a field. will also check IgG/M for EBV,CMV, WNV. HIV and Acute hepatitis panel also pending. pt does not have sx of meningitis. No nuchal ridgidity or intense headaches. will keep fluids going as well DIS - Extensive lab work up done. Neg for HIV, hepatitis, tularemia. Other labs pending. Pt did not have any fever overnight, feeling much better day after admission. Requesting to go home. WIll send him out on doxycycline. Can follow up on pending labs at his follow up appointment. Pt agreeable to plan. CONSTIPATION ADM - Pt states he is having to push to pass a BM. WIll start Miralax today. Declines suppository. DIS - large stool this am. resolved. Chief Complaint/HPI Chief Complaint/HPI 26yo male that presented to ER with complaints of high fever. Patient has diffuse symptoms of myalgias and joint pain in edil past few days. Also complaining of headache and slight constipation. Has still passed stool. No trouble urinating. No BRBPR or melanotic stools. Denies sore throat, runny nose, upper resp symptoms. No cough or sputum production. No diarrhea. Patient states that he was running through a field with barbed wire about 1-2 weeks ago and got his legs all cut up and had lots of abrasions. All of those have healed. He has not had a tetanus shot since he was 13 or 14. He does have multiple tattoos. Discharge Summary-Simple/Stand Consultations Discharge Physical Examination Allergies: Coded Allergies: No Known Drug Allergies (Unverified , 11/16/16) Vitals & I&Os Vital Sign - Last 12Hours Date Time Temp Pulse Resp B/P (MAP) Pulse Ox O2 Delivery O2 Flow Rate FiO2 03/27/17 08:00 97.8 77 24 120/76 95 Room Air Intake and Output 03/27/17 00:00 Intake Total 3900 ml Balance 3900 ml General Appearance: Alert, Oriented X3, Cooperative, No Acute Distress Respiratory: Clear to Auscultation, Normal Air Movement Cardiovascular: Regular Rate, Normal S1, Normal S2, No Murmurs, Gallops, Rubs Abdominal: Normal Bowel Sounds, Soft, No Tenderness, No Hepatosplenomegaly, No Masses Extremities: No Clubbing, No Cyanosis, No Edema Neuro: Normal Gait, Normal Speech Psych/Mental Status: Mental Status NL Hospital Course See final discharge diagnosis. Radiology Reviewed Date of Exam: 03/26/17 CT ABDOMEN/PELVIS W PROCEDURE: CT abdomen and pelvis with contrast. TECHNIQUE: Multiple contiguous axial images were obtained through the abdomen and pelvis after administration of intravenous contrast. INDICATION: Fever, cough, congestion. FINDINGS: There is a trace amount of pelvic free fluid without loculated fluid collection. There is fluid throughout the lumen of the colon with some scattered nondifferential air-fluid levels in the large bowel. There is mild wall thickening of the colon. No substantial pericolonic or perienteric edema. There is some fluid within nondilated small bowel. Pattern raises the question of nonspecific enterocolitis. The appendix is nondilated. No periappendiceal edema or appendicolith. There is no hydronephrosis. Liver, spleen, adrenals, and pancreas unremarkable. There is no pneumatosis or free air. Prostate, seminal vesicles, and urinary bladder appeared unremarkable. There is a minute amount of right-sided pleural fluid at the posterior sulcus. No stone within the gallbladder evident. There is no biliary dilatation. IMPRESSION: 1. Unobstructed nonfocal urinary tracts. Nondilated appendix with no periappendiceal edema. 2. Small and large bowel luminal fluid with some borderline large bowel wall thickening. Pattern raises the question of enterocolitis. Trace free fluid without loculated collection or risa abscess. No free air. Minute right pleural effusion. Discharge Instructions to patient/family Please see electonic discharge instructions given to patient. Discharge Medications Reviewed and agree with Discharge Medication list on patient's Discharge Instruction sheet Clinical Quality Measures DVT/VTE Risk/Contraindication: Risk Factor Score Per Nursin RFS Level Per Nursing on Admit: 1=Low/No VTE PPX Copy Copies To 1: DEBBIE ORDOÑEZ MD, JULIE A MD Mar 27, 2017 11:42 am
[2017-03-27 13:44] LABS: EHRLICHIA CHAFFEENSIS G ABY <1:16 (<1:16)
[2017-03-27 13:58] LABS: IGG ROCKY MOUNTAIN SPOTTED FEV <1:16 (<1:16); IGM ROCKY MOUNTAIN SPOTTED FEV <1:10 (<1:10)
== END 2017-03-27 12:15 | disposition home or self-care (01) | DRG 864 ==
LOC: EDUNIT# 22:33 → ER 22:36 → 4TH 03-26 01:15
PROVIDERS: ADMIT Family Medicine; ATTEND Family Medicine
DX: R50.9 Fever, unspecified (principal); R11.2 Nausea with vomiting, unspecified; R19.7 Diarrhea, unspecified; R51 Headache; K59.00 Constipation, unspecified; F17.210 Nicotine dependence, cigarettes, uncomplicated
CPT/HCPCS: 36415; 71020; 74177; 80048; 80053; 80074; 81000; 82550; 83605; 85007; 85025; 85027; 86141; 86644; 86645; 86663; 86664; 86665; 86666; 86668; 86703; 86757; 86788; 86789; 87040; 87804; 96361; 96365; 96367; 96375

== ENCOUNTER 2017-09-22 20:53 | Emergency (ER) | payer SELFPAY ==
[~2017-09-22] VITALS: Ht 162.6 cm; Wt 76.3 kg
[~2017-09-22 20:53] MED LIST: DOXY100C42 PO; IBUP-30 PO
[2017-09-22] MEDS ORDERED: SULF1TAB35 PO (21:17)
--- NOTE | 2017-09-22 21:17 | ED Integumentary General ---
General Chief Complaint: Skin/Wound Problems Stated Complaint: RASH ON LOWER STOMACH Nursing Triage Note: patient believes that he might have got bit by a spider. Source: patient, family Exam Limitations: no limitations History of Present Illness Date Seen by Provider: Sep 22, 2017 Time Seen by Provider: 21:03 Initial Comments Patient presents to ER by private conveyance with a chief complaint of for the last couple days she's had some red, pain on his belly where his belt rubbed against the skin. Couple days ago and drained a little bit of purulent material. He's had no fevers chills vomiting or diarrhea. He's never had a abscess in this place but he's had them before in other places. He denies a history of hidradenitis Allergies and Home Medications Allergies Coded Allergies: No Known Drug Allergies (Unverified , 11/16/16) Home Medications Sulfamethoxazole/Trimethoprim 1 Each Tablet, 1 EACH PO BID for 5 Days, #10 Ref 0 Prescribed by: VALERIO GRIFFITH on 09/22/172116 Constitutional: No chills, No diaphoresis, No fever Respiratory: No cough, No short of breath Gastrointestinal: No constipation, No diarrhea, No vomiting Genitourinary: No discharge, No dysuria Skin: see HPI Past Oovmazz-Dkdnef-Rnykxg Hx Patient Social History Alcohol Use: Denies Use Recreational Drug Use: No Drug of Choice: Marijuana, METH Smoking Status: Current Everyday Smoker Type Used: Cigarettes 2nd Hand Smoke Exposure: Yes Recent Foreign Travel: No Contact w/Someone Who Travel: No Recent Infectious Disease Expo: No Recent Hopitalizations: No Physical Abuse: No Sexual Abuse: No Immunizations Up To Date Tetanus Booster (TDap): More than 5yrs Seasonal Allergies Seasonal Allergies: No Surgeries History of Surgeries: No Respiratory History of Respiratory Disorde: No Currently Using CPAP: No Currently Using BIPAP: No Cardiovascular History of Cardiac Disorders: Yes (PAC'S) Neurological History of Neurological Disord: No Reproductive System Hx Reproductive Disorders: No Genitourinary History of Genitourinary Disor: No Gastrointestinal History of Gastrointestinal Di: No Musculoskeletal History of Musculoskeletal Dis: No Endocrine History of Endocrine Disorders: No HEENT History of HEENT Disorders: No Cancer History of Cancer: No Psychosocial History of Psychiatric Problem: Yes Behavioral Health Disorders: ADD/ADHD Suicide Risk Score: 0 Integumentary History of Skin or Integumenta: No Skin/Integumentary Disorders: Recent Skin Changes Blood Transfusions History of Blood Disorders: No Adverse Reaction to a Blood Tr: No Family Medical History Significant Family History: No Pertinent Family Hx, Diabetes, Other Conditions/ Hx Physical Exam Vital Signs Vital Sign - Last 12Hours 09/22/17 21:03 Temp 97.0 Pulse 90 Resp 18 B/P (MAP) 127/79 (95) Pulse Ox 96 Capillary Refill : Less Than 3 Seconds General Appearance: WD/WN, no apparent distress HEENT: PERRL/EOMI, pharynx normal Cardiovascular: normal peripheral pulses, regular rate, rhythm Respiratory: no respiratory distress, no accessory muscle use Gastrointestinal: non tender, soft Neurologic/Psychiatric: alert, oriented x 3 Skin: other (erythematous 3 cm diameter patch with a punctate gomez in the center and 1 cm palpable induration under the papule.) I&D : Blade Size: 11 I & D Procedure: betadine prep (etoh) Progress Site was thoroughly cleansed both physically and with alcohol. A ring block of the skin around the papule was infiltrated with 1% lidocaine without epinephrine. After the patient was ascertained to be numb and 11 blade scalpel was used to make a cross castaneda opening over the papule and a small amount of purulent material was extruded. The wound was flushed with sterile saline cleaned, dressed and the patient tolerated procedure well. Laceration Repair : Suture Size: 4-0 Progress/Results/Core Measures Results/Orders My Orders Orders - VALERIO GRIFFITH Rx-Trimeth/Sulfameth Ds Tab (Rx-Bactrim/ (09/22/17 21:18) Vital Signs/I&O Vital Sign - Last 12Hours 09/22/17 21:03 Temp 97.0 Pulse 90 Resp 18 B/P (MAP) 127/79 (95) Pulse Ox 96 Blood Pressure Mean: 95 Departure Impression Impression: Primary Impression: Abscess Disposition: 01 HOME, SELF-CARE Condition: Improved Departure-Patient Inst. Decision time for Depature: 21:45 Referrals: NO,LOCAL PHYSICIAN (PCP/Family) Primary Care Physician Patient Instructions: Abscess Incision and Drainage (DC) Add. Discharge Instructions: Clean the wound with soap and water several times a day. Keep clean dry dressing or Band-Aid over the wound but do not block it from draining or pack anything in the wound. Use Tylenol 1000 mg every 8 hours and/or ibuprofen 800 mg every 8 hours for the pain. Heating pads or warm compresses over the wound are also recommended. Take the Bactrim one tablet twice a day for the next 5-6 days. If the abscess recurs or you feel like or not improving or he started having fevers chills or vomiting follow-up with a primary care physician or urgent care or you may return to the ER. All discharge instructions reviewed with patient and/or family. Voiced understanding. Scripts Sulfamethoxazole/Trimethoprim (Bactrim Ds Tablet) 1 Each Tablet 1 EACH PO BID for 5 Days, #10 TAB 0 Refills Prov: VALERIO GRIFFITH 09/22/17 VALERIO GRIFFITH Sep 22, 2017 21:17
[2017-09-22] MEDS ORDERED: RX-TRIMETH/SULFA. 160-800 MG (BACTRIM DS) TAB PPK#2 PO STA (21:18)
[2017-09-22 22:15] VITALS: BP 127/79
== END 2017-09-22 22:15 | disposition home or self-care (01) ==
LOC: EDUNIT# 20:53 → ER 20:55
DX: L02.211 Cutaneous abscess of abdominal wall (principal); F90.9 Attention-deficit hyperactivity disorder, unspecified type; F12.10 Cannabis abuse, uncomplicated; F15.10 Other stimulant abuse, uncomplicated; F17.210 Nicotine dependence, cigarettes, uncomplicated
CPT/HCPCS: 99283

== ENCOUNTER 2017-10-23 03:24 | Emergency (ER) | payer SELFPAY ==
[~2017-10-23] VITALS: Ht 160 cm; Wt 70.3 kg
[~2017-10-23 03:24] MED LIST changes: +SULF1TAB35 PO
[2017-10-23] MEDS ORDERED: CLINDAMYCIN 900 MG/50 ML IVPB 50 ML IV ONE (03:45)
[2017-10-23] MEDS ORDERED: TETANUS,DIPTH,PERTUSS P/F (BOOSTRIX) 0.5 ML VIAL IM ONE (03:45)
[2017-10-23] MEDS ORDERED: KETOROLAC 30 MG/ML VIAL IVP ONE (03:45)
--- NOTE | 2017-10-23 03:49 | ED Integumentary General ---
General Chief Complaint: Skin/Wound Problems Stated Complaint: BOTTOM LIP SWOLLEN Nursing Triage Note: PT, MOTHER ET S.O. TO ED 5 W/ C/O LOWER LIP SWELLING ONSET AFTER POPPING A SORE ON LOWER LEFT CHIN/LIP AREA. C/O PAIN ET SWELLING TO AREA Source: patient, family (MOM) History of Present Illness Date Seen by Provider: Oct 23, 2017 Time Seen by Provider: 03:31 Initial Comments PT ARRIVES VIA POV FROM HOME C/O PAIN, REDNESS AND SWELLING TO LOWER LIP AND CHIN X 2 DAYS PT STATES HE POPPED A PIMPLE ON HIS CHIN AND HAS BEEN SQUEEZING ON IT--NO DRAINAGE EXCEPT WHEN HE FIRST POPPED IT. DENIES HAVING ANY PIERCINGS TO THIS AREA. NO KNOWN FEVER/SWEATS/CHILLS HAS NOT TAKEN ANYTHING FOR PAIN DID HAVE AN ABSCESS ON LOWER ABDOMEN 09/22/17--DOES NOT KNOW IF IT WAS MRSA OR NOT PT WAS ADMITTED FOR SEPSIS--UNKNOWN SOURCE--02/2017 PT IS IV METH USER AND SHOT UP EARLIER TODAY PCP: NONE--WAS SUPPOSED TO FOLLOW UP WITH [facility], BUT NEVER DID Allergies and Home Medications Allergies Coded Allergies: No Known Drug Allergies (Unverified , 11/16/16) Home Medications Clindamycin HCl 300 Mg Capsule, 300 MG PO QID Prescribed by: FLIP ALEXIS on 10/23/17541 Naproxen 500 Mg Tablet, 500 MG PO BID Prescribed by: FLIP ALEXIS on 10/23/17541 Sulfamethoxazole/Trimethoprim 1 Each Tablet, 1 EACH PO BID Prescribed by: VALERIO GRIFFITH on 09/22/172116 Patient Home Medication List Home Medication List Reviewed: Yes Constitutional: no symptoms reported EENTM: see HPI Respiratory: no symptoms reported Cardiovascular: no symptoms reported Gastrointestinal: no symptoms reported Genitourinary: no symptoms reported Musculoskeletal: no symptoms reported Skin: see HPI Psychiatric/Neurological: No Symptoms Reported Endocrine: No Symptoms Reported Hematologic/Lymphatic: No Symptoms Reported Past Tppgzwr-Pjvjtm-Lroejt Hx Patient Social History Alcohol Use: Occasionally Uses Recreational Drug Use: Yes (THC, + IV METH USE--ALSO SNORTS AND SMOKES IT) Drug of Choice: Marijuana, METH Smoking Status: Current Everyday Smoker Type Used: Cigarettes 2nd Hand Smoke Exposure: Yes Recent Foreign Travel: No Contact w/Someone Who Travel: No Recent Infectious Disease Expo: No Recent Hopitalizations: No Physical Abuse: No Sexual Abuse: No Mistreated: No Fear: No Immunizations Up To Date Tetanus Booster (TDap): Less than 5yrs (11/16/16) Seasonal Allergies Seasonal Allergies: No Surgeries History of Surgeries: No Respiratory History of Respiratory Disorde: No Currently Using CPAP: No Currently Using BIPAP: No Cardiovascular History of Cardiac Disorders: Yes (PAC'S) Neurological History of Neurological Disord: No Reproductive System Hx Reproductive Disorders: No Genitourinary History of Genitourinary Disor: No Gastrointestinal History of Gastrointestinal Di: No Musculoskeletal History of Musculoskeletal Dis: No Endocrine History of Endocrine Disorders: No HEENT History of HEENT Disorders: No Cancer History of Cancer: No Psychosocial History of Psychiatric Problem: Yes Behavioral Health Disorders: ADD/ADHD Suicide Risk Score: 0 Integumentary History of Skin or Integumenta: Yes (ABSCESS/CELLULITIS IN PAST) Blood Transfusions History of Blood Disorders: No Adverse Reaction to a Blood Tr: No Family Medical History Significant Family History: No Pertinent Family Hx, Diabetes, Other Conditions/ Hx Physical Exam Vital Signs Vital Signs - First Documented 10/23/17 03:30 Temp 100.2 Pulse 114 Resp 20 B/P (MAP) 140/99 (113) Pulse Ox 99 O2 Delivery Room Air Capillary Refill : Less Than 3 Seconds General Appearance: WD/WN, no apparent distress, other (DIRTY, REEKS OF CIGARETTES.) HEENT: other (MODERATE SWELLING, WARMTH, ERYTHEMA AND INDURATION TO CHIN AND LOWER LIP. SCABBED WOUND TO CHIN JUST BELOW LIP, AND SUPERFICIAL SPLIT IN CENTER OF LOWER LIP. MARKEDLY EXAGGERATED PAIN RESPONSE--VERY LIMITED EXAM DUE TO THIS. NO GROSS AREAS OF FLUCTUANCE, NO DRAINAGE. NO STREAKS. POOR DENTITION AND ORAL HYGIENE. ) Neck: full range of motion, supple, lymphadenopathy (L), tender lateral, tender midline Cardiovascular: regular rate, rhythm, no murmur Respiratory: normal breath sounds Extremities: normal capillary refill, other (EXTENSIVE AREAS OF PARONYCHIA, WITH SUB Q PURULENCE TO MULITPLE FINGER CUTICLES. BILATERAL AC SPACES WITH RECENT TRACK MARTINEZ/IV STICKS. 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, no motor/sensory deficits, alert, normal mood/affect, oriented x 3 Skin: normal color, warm/dry, tattoos/piercings (EXTENSIVE TATTOOS), other ( ABOVE) Laceration Repair : Suture Size: 4-0 Progress/Results/Core Measures Results/Orders Lab Results Laboratory Tests Test 10/23/17 04:07 10/23/17 04:20 Range/Units White Blood Count 17.2 H 4.3-11.0 10^3/uL Red Blood Count 4.47 4.35-5.85 10^6/uL Hemoglobin 13.7 13.3-17.7 G/DL Hematocrit 39 L 40-54 % Mean Corpuscular Volume 87 80-99 FL Mean Corpuscular Hemoglobin 31 25-34 PG Mean Corpuscular Hemoglobin Concent 35 32-36 G/DL Red Cell Distribution Width 12.7 10.0-14.5 % Platelet Count 268 130-400 10^3/uL Mean Platelet Volume 8.3 7.4-10.4 FL Neutrophils (%) (Auto) 84 H 42-75 % Lymphocytes (%) (Auto) 7 L 12-44 % Monocytes (%) (Auto) 8 0-12 % Eosinophils (%) (Auto) 0 0-10 % Basophils (%) (Auto) 0 0-10 % Neutrophils # (Auto) 13.0 H 1.8-7.8 X 10^3 Lymphocytes # (Auto) 1.1 1.0-4.0 X 10^3 Monocytes # (Auto) 1.2 H 0.0-1.0 X 10^3 Eosinophils # (Auto) 0.0 0.0-0.3 10^3/uL Basophils # (Auto) 0.0 0.0-0.1 10^3/uL Neutrophils % (Manual) 82 % Lymphocytes % (Manual) 8 % Monocytes % (Manual) 10 % Eosinophils % (Manual) 0 % Basophils % (Manual) 0 % Band Neutrophils 0 % Toxic Granulation 1+ Sodium Level 135 135-145 MMOL/L Potassium Level 3.7 3.6-5.0 MMOL/L Chloride Level 103 98-107 MMOL/L Carbon Dioxide Level 19 L 21-32 MMOL/L Anion Gap 13 5-14 MMOL/L Blood Urea Nitrogen 15 7-18 MG/DL Creatinine 1.13 0.60-1.30 MG/DL Estimat Glomerular Filtration Rate > 60 BUN/Creatinine Ratio 13 Glucose Level 147 H 70-105 MG/DL Calcium Level 9.0 8.5-10.1 MG/DL Total Bilirubin 0.9 0.1-1.0 MG/DL Aspartate Amino Transf (AST/SGOT) 33 5-34 U/L Alanine Aminotransferase (ALT/SGPT) 27 0-55 U/L Alkaline Phosphatase 39 L 40-136 U/L Total Protein 7.1 6.4-8.2 GM/DL Albumin 4.1 3.2-4.5 GM/DL Serum Alcohol < 10 <10 MG/DL Lactic Acid Level 1.54 0.50-2.00 MMOL/L My Orders Orders - FLIP ALEXIS DO Saline Lock/Iv-Start (10/23/17 03:42) Alcohol (10/23/17 03:42) Cbc With Automated Diff (10/23/17 03:42) Comprehensive Metabolic Panel (10/23/17 03:42) Lactic Acid Analyzer (10/23/17 03:42) Blood Culture (10/23/17 03:42) Ct Maxillofacial Wo (10/23/17 03:42) Clindamycin 900 Mg/50 Ml Ivpb (Cleocin P (10/23/17 03:45) Ketorolac Injection (Toradol Injection) (10/23/17 03:45) Dipht,Pertuss(Acell),Tet Adult (Boostrix (10/23/17 03:45) Manual Differential (10/23/17 04:07) Medications Given in ED Current Medications Medications Dose Ordered Sig/Chava Route Start Time Stop Time Status Last Admin Dose Admin Clindamycin Phosphate/Dextrose 50 ml @ 100 mls/hr ONCE ONCE IV 10/23/17 03:45 10/23/17 05:30 DC 10/23/17 04:54 100 MLS/HR Ketorolac Tromethamine 30 mg ONCE ONCE IVP 10/23/17 03:45 10/23/17 05:30 DC 10/23/17 04:11 30 MG Vital Signs/I&O Vital Sign - Last 12Hours 10/23/17 03:30 Temp 100.2 Pulse 114 Resp 20 B/P (MAP) 140/99 (113) Pulse Ox 99 O2 Delivery Room Air Blood Pressure Mean: 113 Progress Note : Progress Note PT VERY UNCOOPERATIVE AND BELLIGERENT WITH THREATENING BEHAVIOR TO STAFF WHEN TRYING TO START IV. PT ALSO THE SAME TOWARDS MOTHER, WHO THEN LEFT. SHE ADVISES TO CALL HER WHEN DISPOSITION IS MADE TO WHETHER SHE NEEDS TO COME PICK HIM UP AND TAKE HIM HOME, OR IF HE WILL BE ADMITTED. PT'S GIRLFRIEND IS HERE WITH PT PT SLEPT FOR REMAINDER OF ER STAY Diagnostic Imaging Comments CT MAXILLOFACIALS--MODERATE SOFT TISSUE SWELLING OF LEFT CHIN AND LIP--PER [facility] VIA FAX @ 0132 Reviewed: Reviewed by Me Departure Impression Impression: Primary Impression: CELLULITIS OF CHIN AND LOWER LIP Additional Impression: SUSPECTED MRSA INFECTION Disposition: HOME, SELF-CARE Condition: Stable Departure-Patient Inst. Referrals: NO,LOCAL PHYSICIAN (PCP/Family) Primary Care Physician Patient Instructions: MRSA (DC), Cellulitis (Skin Infection), Adult (DC) Add. Discharge Instructions: ALTERNATE ICE AND MOIST HEAT TO AREA AT 20 MINUTE INTERVALS DO NOT POKE, PICK OR SQUEEZE AREA FOLLOW UP WITH [facility] TOMORROW FOR RECHECK RETURN TO ER IF WORSE All discharge instructions reviewed with patient and/or family. Voiced understanding. Scripts Naproxen (Naproxen) 500 Mg Tablet 500 MG PO BID, #20 TAB Prov: FLIP ALEXIS DO 10/23/17 Clindamycin HCl (Clindamycin HCl) 300 Mg Capsule 300 MG PO QID for FOR INFECTION, #40 CAP Prov: FLIP ALEXIS DO 10/23/17 FLIP ALEXIS DO Oct 23, 2017 03:49
[2017-10-23 04:20] LABS: BASOPHILS % (AUTO) 0 % (0-10); EOSINOPHILS % (AUTO) 0 % (0-10); LYMPHOCYTES # (AUTO) 1.1 X 10^3 (1.0-4.0); LYMPHOCYTES % (AUTO) 7 % (12-44); MEAN CORPUSCULAR HGB CONC 35 G/DL (32-36); MEAN CORPUSCULAR VOLUME 87 FL (80-99); MEAN PLATELET VOLUME 8.3 FL (7.4-10.4); MONOCYTES # (AUTO) 1.2 X 10^3 (0.0-1.0); MONOCYTES % (AUTO) 8 % (0-12); NEUTROPHILS % (AUTO) 84 % (42-75); RED CELL DISTRIBUTION WIDTH 12.7 % (10.0-14.5)
[2017-10-23 04:24] LABS: WHITE BLOOD COUNT 17.2 10^3/uL (4.3-11.0)
[2017-10-23 04:25] LABS: HEMATOCRIT 39 % (40-54); HEMOGLOBIN 13.7 G/DL (13.3-17.7); MEAN CORPUSCULAR HEMOGLOBIN 31 PG (25-34); PLATELET COUNT 268 10^3/uL (130-400); RED BLOOD COUNT 4.47 10^6/uL (4.35-5.85)
[2017-10-23 04:32] LABS: ALANINE AMINOTRANSFERASE 27 U/L (0-55); ALBUMIN 4.1 GM/DL (3.2-4.5); ALKALINE PHOSPHATASE 39 U/L (40-136); BILIRUBIN,TOTAL 0.9 MG/DL (0.1-1.0); BUN/CREATININE RATIO 13; CARBON DIOXIDE 19 MMOL/L (21-32); CHLORIDE 103 MMOL/L (98-107); CREATININE SERUM 1.13 MG/DL (0.60-1.30); GFR ESTIMATED > 60; GLUCOSE 147 MG/DL (70-105); POTASSIUM 3.7 MMOL/L (3.6-5.0); SODIUM 135 MMOL/L (135-145); TOTAL PROTEIN 7.1 GM/DL (6.4-8.2)
[2017-10-23 04:43] LABS: BAND NEUTROPHILS 0 %; BASOPHILS % (MANUAL) 0 %; EOSINOPHILS % (MANUAL) 0 %; LYMPHOCYTES % (MANUAL) 8 %; MONOCYTES % (MANUAL) 10 %; NEUTROPHILS % (MANUAL) 82 %; TOXIC GRANULATION/VACUOLAZATIO 1+
[2017-10-23] MEDS ORDERED: NAPR-915 PO (05:42)
[2017-10-23] MEDS ORDERED: CLIN300C11 PO (05:42)
[2017-10-23 05:54] VITALS: BP 131/92
--- NOTE | 2017-10-23 06:31 | Diagnostic Imaging Report ---
PROCEDURE: CT maxillofacial without contrast. TECHNIQUE: Multiple contiguous axial images were obtained through the facial bones without the use of intravenous contrast. INDICATION: Lower lip swelling and pain No prior examinations are available for comparison. FINDINGS: The mandible demonstrates normal alignment and is intact. The zygomatic arches are intact. Nasal bones are intact. The frontal, ethmoid, and sphenoid sinuses are clear. There is some minimal mucosal thickening in the right maxillary sinus. Mastoid air cells are clear. Globes and intraorbital structures are unremarkable. There is moderate soft tissue swelling in the left chin and lip region. There are no other focal soft tissue abnormalities. IMPRESSION: Soft tissue swelling in the region of the left chin and lip. Minimal mucosal thickening in the right maxillary sinus. No other acute abnormality. Dictated by: Dictated on workstation # [id number]
== END 2017-10-23 05:54 | disposition home or self-care (01) ==
LOC: EDUNIT# 03:24 → ER 03:26
DX: L03.211 Cellulitis of face (principal); K12.2 Cellulitis and abscess of mouth; F90.9 Attention-deficit hyperactivity disorder, unspecified type; F12.10 Cannabis abuse, uncomplicated; F17.210 Nicotine dependence, cigarettes, uncomplicated; F15.10 Other stimulant abuse, uncomplicated
CPT/HCPCS: 36415; 70486; 80053; 80320; 83605; 85007; 85027; 87040; 96365; 96375

== ENCOUNTER 2018-05-14 20:11 | Emergency (ER) | payer SELFPAY ==
[~2018-05-14] VITALS: Ht 160 cm; Wt 72.7 kg
[~2018-05-14 20:11] MED LIST changes: +CLIN300C11 PO; +NAPR-915 PO
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
--- NOTE | 2018-05-14 22:06 | Diagnostic Imaging Report ---
INDICATION: Pain in the left fourth metacarpal. TIME OF EXAM: 10:07 PM FINDINGS: Three views of the left hand demonstrate an acute fracture through the midshaft of the fourth metacarpal. No significant displacement or angulation is seen. All other metacarpals are intact. Phalanges appear intact. Carpus is unremarkable. IMPRESSION: Nondisplaced midshaft fourth metacarpal fracture. Dictated by: Dictated on workstation # [id number]
[2018-05-14] MEDS ORDERED: ACHD5005 PO (22:58)
[2018-05-14] MEDS ORDERED: RX-HYDROCODONE/APAP 5/325 MG #4 TAB PK PO PRN (23:00)
[2018-05-14 23:12] VITALS: BP 141/95
== END 2018-05-14 23:14 | disposition home or self-care (01) ==
LOC: EDUNIT# 20:11 → ER 20:12
DX: S62.355A Nondisplaced fracture of shaft of fourth metacarpal bone, left hand, initial encounter for closed fracture (principal); F90.9 Attention-deficit hyperactivity disorder, unspecified type; F12.10 Cannabis abuse, uncomplicated; F15.10 Other stimulant abuse, uncomplicated; Z77.22 Contact with and (suspected) exposure to environmental tobacco smoke (acute) (chronic); X58.XXXA Exposure to other specified factors, initial encounter
CPT/HCPCS: 29125; 73130

== ENCOUNTER 2020-11-01 18:27 | Emergency (ER) | payer SELFPAY ==
[~2020-11-01] VITALS: Ht 165.1 cm; Wt 58.9 kg
[~2020-11-01 18:27] MED LIST changes: +ACHD5005 PO; -CLIN300C11 PO; +CLIN300C12 PO
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
[2020-11-01] MEDS ORDERED: fentaNYL INJECTION 100 MCG/2 ML AMP IM ONE (19:30)
[2020-11-01] MEDS ORDERED: OXYC1TAB11 PO (19:57)
[2020-11-01] MEDS ORDERED: oxyCODONE/APAP 5/325MG (PERCOCET 5) TABLET PO ONE (20:00)
[2020-11-01 20:21] VITALS: BP 116/74
== END 2020-11-01 20:21 | disposition home or self-care (01) ==
LOC: EDUNIT# 18:27 → ER 18:29
DX: S52.351A Displaced comminuted fracture of shaft of radius, right arm, initial encounter for closed fracture (principal); F17.210 Nicotine dependence, cigarettes, uncomplicated; W23.0XXA Caught, crushed, jammed, or pinched between moving objects, initial encounter
CPT/HCPCS: 29105; 73090; 99284; A4565

== ENCOUNTER 2020-11-02 19:13 | Emergency (ER) | payer OTHER ==
[~2020-11-02] VITALS: Ht 165.1 cm; Wt 58.9 kg
[~2020-11-02 19:13] MED LIST changes: +OXYC1TAB11 PO
[2020-11-02 19:15] VITALS: BP 136/83
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
--- NOTE | 2020-11-02 19:42 | Diagnostic Imaging Report ---
INDICATION: Forearm fracture. Time of exam: 7:20 PM Correlation is made with prior radiographs one day earlier. Overlying cast is noted. Midshaft fracture of the radius is again noted. Alignment appears to be near-anatomic. Ulna is intact. IMPRESSION: Casting of the midshaft radius fracture. Dictated by: Dictated on workstation # [id number]
[2020-11-02] MEDS ORDERED: ACETAMINOPHEN 500 MG TAB (TYLENOL) PO ONE (20:00)
== END 2020-11-02 19:38 ==
LOC: EDUNIT# 19:13 → ER 19:14
DX: S52.301A Unspecified fracture of shaft of right radius, initial encounter for closed fracture (principal); F17.210 Nicotine dependence, cigarettes, uncomplicated; Y35.93XA Legal intervention, means unspecified, suspect injured, initial encounter
CPT/HCPCS: 73090

== ENCOUNTER → 2020-11-17 | Outpatient (CLI) | payer SELFPAY ==
--- NOTE | 2020-11-17 12:33 | Diagnostic Imaging Report ---
INDICATION: Follow-up fracture. COMPARISON: 11/02/2020 FINDINGS: Frontal and lateral radiograph views of the right forearm were obtained and again demonstrate comminuted fractures of the midshaft of the radius. There is mild displacement of the fracture fragments in posterior subluxation of the distal radial shaft. Overall, appearance is stable compared to 11/02/2020. There is no appreciable bridging callus formation or other evidence of significant interval healing. No new acute fracture or dislocation is identified. No unexpected radiopaque foreign bodies are seen. IMPRESSION: 1. Stable comminuted displaced fracture of the midshaft of the right radius. Dictated by: Dictated on workstation # [id number]
== END ==
LOC: ORTHO 11:14
PROVIDERS: ATTEND Orthopaedic Surgery
DX: S52.351D Displaced comminuted fracture of shaft of radius, right arm, subsequent encounter for closed fracture with routine healing (principal); X58.XXXD Exposure to other specified factors, subsequent encounter
CPT/HCPCS: 29065; 73090; G0463

== ENCOUNTER 2020-11-18 06:30 | Outpatient (CLI) | payer SELFPAY ==
[~2020-11-18] VITALS: Ht 160 cm; Wt 70.5 kg
[2020-11-18] MEDS ORDERED: ACHD5005 PO (10:13)
== END 2020-11-18 10:15 | disposition home or self-care (01) ==
LOC: PREOP 06:30
PROVIDERS: ATTEND Orthopaedic Surgery
DX: Z01.818 Encounter for other preprocedural examination (principal)

== ENCOUNTER 2021-01-17 09:08 | Emergency (ER) | payer OTHER ==
[~2021-01-17] VITALS: Ht 162.5 cm; Wt 68.1 kg
[2021-01-17 09:22] VITALS: BP 150/113
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
== END 2021-01-17 10:03 | disposition home or self-care (01) ==
LOC: EDUNIT# 09:08 → ER 09:10
DX: M79.631 Pain in right forearm (principal); F17.210 Nicotine dependence, cigarettes, uncomplicated; Z87.81 Personal history of (healed) traumatic fracture
CPT/HCPCS: 29125

== ENCOUNTER 2021-01-29 11:53 | Emergency (ER) | payer OTHER ==
[~2021-01-29] VITALS: Ht 162.5 cm; Wt 68.1 kg
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
--- NOTE | 2021-01-29 12:39 | Diagnostic Imaging Report ---
INDICATION: Knee pain after fall. Three views were obtained. FINDINGS: The osseous alignment is normal. There is no acute fracture or dislocation. The soft tissues are unremarkable. IMPRESSION: No acute abnormality. Dictated by: Dictated on workstation # [id number]
--- NOTE | 2021-01-29 12:45 | Diagnostic Imaging Report ---
INDICATION: Fall. 3 views were obtained FINDINGS: There is a comminuted fracture of the mid right radial diaphysis. Wrist and elbow are unremarkable. Soft tissues are unremarkable. IMPRESSION: Comminuted fractures mid right radial diaphysis. Dictated by: Dictated on workstation # [id number]
[2021-01-29] MEDS ORDERED: ACHD5005 PO (12:55)
[2021-01-29 12:58] VITALS: BP 118/82
== END 2021-01-29 13:07 | disposition home or self-care (01) ==
LOC: EDUNIT# 11:53 → ER 11:54
DX: T75.4XXA Electrocution, initial encounter (principal); S52.91XA Unspecified fracture of right forearm, initial encounter for closed fracture; S80.02XA Contusion of left knee, initial encounter; F17.210 Nicotine dependence, cigarettes, uncomplicated; W18.39XA Other fall on same level, initial encounter
CPT/HCPCS: 73090; 73562

== ENCOUNTER 2021-06-18 19:14 | Emergency (ER) | payer OTHER ==
[~2021-06-18] VITALS: Ht 162 cm; Wt 77.0 kg
[~2021-06-18 19:14] MED LIST changes: +CLIN-144 PO; -CLIN300C12 PO; +DOXY-311 PO; -DOXY100C42 PO; -SULF1TAB35 PO; +SULF1TAB38 PO
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
[2021-06-18] MEDS ORDERED: ACHD5005 PO (20:52)
[2021-06-18] MEDS ORDERED: HYDROcodone/APAP 5 MG/325 MG (LORTAB) TAB PO ONE (21:00)
[2021-06-18 21:06] VITALS: BP 125/63
== END 2021-06-18 21:10 ==
LOC: EDUNIT# 19:14 → ER 19:17
DX: S52.301A Unspecified fracture of shaft of right radius, initial encounter for closed fracture (principal); Y04.2XXA Assault by strike against or bumped into by another person, initial encounter
CPT/HCPCS: 29105; 73090; 99284; A4565